=== PATIENT | male | born 1970 | race Caucasian/White ===

== ENCOUNTER 2023-07-19 09:02 | Emergency (ER) | payer OTHER, SELFPAY ==
--- NOTE | 2023-07-19 09:36 | ED.GENMED ---
History of Present Illness
General
Chief Complaint: Abdominal Pain
Time Seen by Provider: 07/19/23 09:20
Travel History
Have you had any contact with someone who has COVID-19?: No
Do you have any symptoms of coronavirus? Fever > 100 degrees, chills, cough, shortness of breath, sore throat, loss of taste or smell, muscle aches, or headache?: No
History of Present Illness
History of Present Illness:
53-year-old male presents to the emergency department for evaluation of persistent right lower quadrant and right flank pain ongoing for the past month. Pain was quite minimal initially but is gradually worsened. Describes a constant pain that is
worse whenever he is flexing the hip/walking upstairs. Tends to the past 2 to 3 days. He is scheduled for an outpatient CT scan however has not been able to get this set up yet. Denies fevers, chills, sweats, vomiting, or diarrhea but is
nauseated. Denies hematuria or dysuria. No history of intra-abdominal surgeries but did have abdominal liposuction performed approximately 1 year ago.
Past History
Past History
ED Past Medical History: None
ED Past Surgical History: None
Social History
Tobacco: Non-smoker
Alcohol: Occasional
Personal:
Living: with family
Family History
Family History: Negative Diabetes, Hypertension, Early CAD, CAD or Asthma
Review of Systems
Review of Systems
Allergies reviewed?: Yes
All Other Systems: ROS reviewed and negative except as documented in HPI and ROS
Phy Exam
Physical Exam
Physical Exam:
GEN: Well appearing, NAD, WDWN
Eyes: PERRLA, EOMs intact, no scleral icterus
HENT: NCAT, oral mucosa moist
Lungs: CTAB, no wheezes, rales, rhonchi, normal chest wall excursion
Cardiac: RRR, no M/R/G, no peripheral edema. Radial pulses 2+ bilat
Abdomen: Soft, mild tenderness along the right flank with no focal anterior abdominal tenderness, no rigidity or peritoneal sign
Neuro: AO x 3
MSK: No gross deformity or ecchymosis.
Skin: No rashes, petechiae. Normal color, no pallor or jaundice.
Psych: Calm, cooperative, proper hygiene
Course
Orders/Labs/Results
Orders:
Orders
07/19/23 09:34
CT Abd/Pel (IV only)-DH only Urgent
Comment:
Reason For Exam: RLQ pain
07/19/23 09:53
Complete Blood Count/With Diff Urgent
Comprehensive Metabolic Panel Urgent
Urinalysis Reflex To Culture Urgent
Date Specimen was Collected: 07/19/23
Time Specimen was Collected: 09:49
07/19/23 09:53
07/19/23 09:53
Vital Signs
Initial and Last Documented VS:
Initial Vital Signs
Temp Pulse Resp Pulse Ox
98.0 F 71 18 100
07/19/23 09:12 07/19/23 09:12 07/19/23 09:12 07/19/23 09:12
Last Documented Vital Signs
Temp Pulse Resp BP Pulse Ox
98.0 F 71 18 134/82 100
07/19/23 09:12 07/19/23 09:12 07/19/23 09:12 07/19/23 10:00 07/19/23 09:12
MDM/Problems Addressed
MDM/Problems Addressed:
Labs are unremarkable. CT reveals mesenteric radiculitis. Patient duration of symptoms for this condition is somewhat atypical. I discussed with general surgery who recommends high-dose NSAIDs for at least 1 week with consideration of steroids if
refractory. Patient clinically stable does not require hospitalization.
*Critical Care Note
Total Time (30-74mins, 75-104mins- exclusive of procedures): Not Applicable
ED Attending Note
-
Portions of this chart may have been created with voice recognition software.� Occasional wrong word or��sound alike� substitutions may have occurred due to the inherent limitations of voice recognition software.
Discharge Plan
Departure
Patient Disposition: Home (Routine Discharge)
Date of Disposition: 07/19/23
Time of Disposition: 11:06
Patient with high blood pressure during this ER visit?: No
Discharge Problem:
Mesenteric panniculitis
Prescriptions:
New
diclofenac sodium 75 mg tablet,delayed release (DR/EC)
75 mg PO BID 10 Days Qty: 20 0RF
No Action
lorazepam 1 MG tablet
1 mg PO HS
escitalopram oxalate 20 MG tablet
20 mg PO DAILY
hydrocodone-acetaminophen [Vicodin] 1 EACH tablet
1 ea PO .Q4-6HPRN Qty: 12 0RF
ibuprofen 600 MG tablet
600 mg PO Q6H Qty: 30 0RF
diazepam 5 MG tablet
5 mg PO TIDPRN PRN (Reason: pain) Qty: 14 0RF
Referrals:
Lizz Zee PA [Family Provider] -
Prasad Torres MD [Active] -
Activity Restrictions/Additional Instructions:
Your CT scan showed mesenteric panniculitis. This is a condition causing inflammation and scarring of the fatty tissue that connects your small intestines. Majority of people will have symptoms that resolve within several weeks however your
symptoms appear to be ongoing beyond the normal duration. We are trying you on a course of anti-inflammatory medications for the next 10 days. If this does not help your pain please discuss with your primary care physician the option for taking
steroid medications. Please follow-up with your primary care physician or the listed general surgeon in the next 10 to 14 days
Interventions
Interventions:
*Risk Screen - Suicide Last Done: 07/19/23 09:16
*General Assessment Last Done: 07/19/23 09:12
*Neglect/Abuse Screening Last Done: 07/19/23 09:16
ED- Fall Risk Assessment Last Done: 07/19/23 12:16
*ED COVID-19 Vaccine History Last Done: 07/19/23 09:12
*Nursing Disposition Last Done: 07/19/23 12:16
DD-Xtfeuk-Dtypjdlmtk Assessment Last Done: 07/19/23 12:16
Discharge Date and Time
Discharge Date/Time: 07/19/23 12:16
[2023-07-19 10:00] VITALS: BP 134/82
[2023-07-19 10:01] LABS: % Basophils 0.4 % (0-2); % Eosinophils 1.6 % (0-6); % Immature Granulocytes 0.2 % (0-0.5); % Lymphocytes 29.5 % (20.5-51.1); % Neutrophils 59.3 % (42.2-75.2); Absolute Eosinophils 0.1 10^3/uL (0-0.7); Absolute Lymphocytes 1.5 10^3/uL (1.2-3.4); Absolute Monocytes 0.5 10^3/uL (0.1-0.6); Hematocrit 40.8 % (39.0-52.0); Hemoglobin 14.7 g/dL (13.0-18.0); Mean Corpuscular Hgb 30.7 pg (27.0-31.0); Mean Corpuscular Volume 85.2 fL (80.0-94.0); Mean Platelet Volume 9.1 fL (7.4-10.4); Nucleated Red Blood Cells % 0 % (-); Platelet Count 219 10^3/uL (130-400); Red Blood Cell Count 4.79 10^6/uL (4.70-6.10); Red Cell Dist. Width 12.3 % (11.5-14.5); Urine Albumin Negative (Neg - Trace); Urine Bilirubin Negative (Negative); Urine Character Clear (Clear); Urine Color Yellow; Urine Glucose Negative (Negative); Urine Ketone Negative (Negative); Urine Leukocyte Negative (Negative); Urine Nitrite Negative (Negative); Urine Occult Blood Negative (Negative); Urine Specific Gravity 1.025 (<1.030); Urine Urobilinogen Negative (Neg - 1+); White Blood Cell Count 5.1 10^3/uL (4.8-10.8)
[2023-07-19 10:13] LABS: AST (SGOT) 26 U/L (17-59); Albumin 4.5 g/dl (3.5-5.0); Alkaline Phosphatase 56 U/L (38-126); Blood Urea Nitrogen 19 mg/dl (9-20); Calcium 9.5 mg/dl (8.4-10.2); Carbon Dioxide 27 mmol/L (22-30); Chloride 104 mmol/L (98-107); Glucose 99 mg/dl (70-99); Potassium 3.8 mmol/L (3.5-5.1); Sodium 137 mmol/L (135-145); Total Bilirubin 0.9 mg/dl (0.2-1.3); eGFR > 60.00
[2023-07-19 10:51] LABS: ALT (SGPT) 28 U/L (0-50)
== END 2023-07-19 12:16 | disposition home or self-care (01) ==
LOC: EMR 09:02
PROVIDERS: Physician Assistant; EMERGENCY PHYSICIAN Emergency Medicine; FAMILY PHYSICIAN Physician Assistant Medical
DX: K65.4 Sclerosing mesenteritis (principal)
CPT/HCPCS: 99284; 74177; 80053; 81003; 85025; Q9967

== ENCOUNTER → 2023-10-25 08:44 | Outpatient (REF) | payer OTHER, SELFPAY | LOC: RAD 08:44 | PROVIDERS: ATTENDING PHYSICIAN Physician Assistant Medical | DX: M54.50 Low back pain, unspecified (principal); M54.6 Pain in thoracic spine | CPT/HCPCS: 72072; 72110 ==

== ENCOUNTER → 2023-11-01 07:49 | Outpatient (REF) | payer OTHER, SELFPAY | LOC: RAD 07:49 | PROVIDERS: ATTENDING PHYSICIAN Physician Assistant Medical | DX: K65.4 Sclerosing mesenteritis (principal) | CPT/HCPCS: 74177; Q9967 ==

== ENCOUNTER → 2024-07-08 15:37 | Outpatient (REF) | payer OTHER, SELFPAY | LOC: RAD 15:37 | PROVIDERS: ATTENDING PHYSICIAN Physician Assistant Medical | DX: M54.2 Cervicalgia (principal) | CPT/HCPCS: 72050 ==

== ENCOUNTER 2024-11-15 11:39 | Emergency (ER) | payer OTHER, SELFPAY ==
[2024-11-15 11:43] VITALS: BP 153/93
[2024-11-15 12:21] VITALS: BP 142/73
[2024-11-15 12:28] VITALS: BMI 28.3
[2024-11-15 13:00] VITALS: BP 131/84
--- NOTE | 2024-11-15 13:28 | ED.GENMED ---
History of Present Illness
General
Chief Complaint: Male Genito-Urinary Symptoms
Source: patient
Exam Limitations: none
Time Seen by Provider: 11/15/24 13:04
Nursing documentation reviewed up to this point in time: agreed with
History of Present Illness
History of Present Illness:
Patient to ED wt complaint of left testicual pain. SYmptoms started yesterday. Taking ibuprofen for pain. States this AM pain was worse, he felt nauseous. went to but was referred to ED. He had a vasectomy on October 02. States pain is
similar to his post op pain. Denies any urinary symptoms.
Past History
Past History
ED Past Medical History: None
ED Past Surgical History: Urological (vasectomy October 02)
Social History
Tobacco: Non-smoker
Alcohol: Occasional
Personal:
Living: with family
Family History
Family History: Negative Diabetes, Hypertension, Early CAD, CAD or Asthma
Review of Systems
Review of Systems
Allergies reviewed?: Yes
All Other Systems: ROS reviewed and negative except as documented in HPI and ROS
Constitutional: Reports no symptoms
EENT: Reports no symptoms
Respiratory: Reports no symptoms
Cardiac: Reports no symptoms
ABD/GI: Reports no symptoms
: Reports other (left testicular pain)
Musculoskeletal: Reports no symptoms
Skin: Reports no symptoms
Neurological: Reports no symptoms
Psychiatric: Reports no symptoms
Phy Exam
General Physical Exam
General Presentation: well appearing and no apparent distress
General age: appears stated age
General Skin: warm and dry
General Habitus: normal
Genitourinary Exam Male
Exam Male: normal external genitalia, no evidence of trauma, no lesions and no testicular swelling
Testicular Exam: Tender to palpation: Left
Epididymis Exam: normal
Musculoskeletal Exam
Musculoskeletal Exam: full ROM
Skin Exam
Skin Exam: normal color, warm/dry and no rash
Psychiatric Exam
Psychiatric Exam: normal mood/affect
Course
Orders/Labs/Results
Orders:
Orders
11/15/24 11:42
Scrotum US [US Scrotum] Urgent
Comment:
Reason For Exam: left sided scrotum pain
11/15/24 13:29
Urinalysis Reflex To Culture Urgent
Date Specimen was Collected: 11/15/24
Time Specimen was Collected: 13:26
Comment: Clean catch
Vital Signs
Initial and Last Documented VS:
Initial Vital Signs
Temp Pulse Resp BP Pulse Ox
98.4 F 80 16 153/93 100
11/15/24 11:43 11/15/24 11:43 11/15/24 11:43 11/15/24 11:43 11/15/24 11:43
Last Documented Vital Signs
Temp Pulse Resp BP Pulse Ox
98.4 F 80 16 131/84 98
11/15/24 11:43 11/15/24 11:43 11/15/24 11:43 11/15/24 13:00 11/15/24 13:32
*Radiology
Radiology exam reviewed: radiology read reviewed
*Pulse Oximetry
SaO2: 98
Oxygen Mode of Delivery: Room air
Patient hypoxic: no
*Critical Care Note
Total Time (30-74mins, 75-104mins- exclusive of procedures): Not Applicable
Update Note
Update Note:
Patient to ED with left testicular pain. No swelling. NO fever/chills. US neg for acute findings. UA neg for UTI. No findings on exam today to explain his symptoms. WIll discharge home and he will follow up with Dr Cervantes in office. Given
instructions on s/s to return ot ED andhe is agreeable to plan.
ED Attending Note
-
Portions of this chart may have been created with voice recognition software.� Occasional wrong word or��sound alike� substitutions may have occurred due to the inherent limitations of voice recognition software.
Discharge Plan
Departure
Prescriptions:
No Action
lorazepam 1 MG tablet
1 mg PO HS
escitalopram oxalate 20 MG tablet
20 mg PO DAILY
hydrocodone-acetaminophen [Vicodin] 1 EACH tablet
1 ea PO .Q4-6HPRN Qty: 12 0RF
ibuprofen 600 MG tablet
600 mg PO Q6H Qty: 30 0RF
diazepam 5 MG tablet
5 mg PO TIDPRN PRN (Reason: pain) Qty: 14 0RF
diclofenac sodium 75 mg tablet,delayed release (DR/EC)
75 mg PO BID 10 Days Qty: 20 0RF
Referrals:
Lizz Zee PA [Family Provider, Family Practice]
Interventions
Interventions:
*Risk Screen - Suicide Last Done: 11/15/24 11:40
*General Assessment Last Done: 11/15/24 11:40
*Neglect/Abuse Screening Last Done: 11/15/24 11:40
*ED- Fall Risk Assessment Last Done: 11/15/24 12:28
*ED COVID-19 Vaccine History Last Done: 11/15/24 12:28
ED-Male Genitourinary Assessment Last Done: 11/15/24 12:28
Discharge Date and Time
Print Language: [place]
[2024-11-15 13:39] LABS: Urine Albumin Negative (Neg - Trace); Urine Bilirubin Negative (Negative); Urine Character Clear (Clear); Urine Color Yellow; Urine Glucose Negative (Negative); Urine Ketone Negative (Negative); Urine Leukocyte Negative (Negative); Urine Nitrite Negative (Negative); Urine Occult Blood Negative (Negative); Urine Urobilinogen Negative (Neg - 1+)
[2024-11-15 14:00] VITALS: BP 127/92
== END 2024-11-15 14:14 | disposition home or self-care (01) ==
LOC: EMR 11:39
PROVIDERS: Nurse Practitioner; EMERGENCY PHYSICIAN Emergency Medicine; FAMILY PHYSICIAN Physician Assistant Medical
DX: N50.812 Left testicular pain (principal); Z98.52 Vasectomy status
CPT/HCPCS: 99284; 76870; 81003; 93976

== ENCOUNTER 2025-05-08 19:51 | Emergency (ER) | payer OTHER, SELFPAY ==
[2025-05-08 19:59] VITALS: BP 178/107
[2025-05-08 20:28] VITALS: BP 137/92
[2025-05-08 20:29] VITALS: BMI 30.6
[2025-05-08 20:49] LABS: Hematocrit 43.0 % (39.0-52.0); Hemoglobin 15.2 g/dL (13.0-18.0); Mean Corp Hgb Conc. 35.3 g/dL (33.0-37.0); Mean Corpuscular Volume 84.8 fL (80.0-94.0); Nucleated Red Blood Cells % 0 % (-); Platelet Count 220 10^3/uL (130-400); Red Cell Dist. Width 12.3 % (11.5-14.5)
[2025-05-08 21:00] VITALS: BP 134/84
[2025-05-08 21:12] LABS: ALT (SGPT) 28 U/L (0-50); AST (SGOT) 28 U/L (17-59); Albumin 4.8 g/dl (3.5-5.0); Alkaline Phosphatase 56 U/L (38-126); Blood Urea Nitrogen 21 mg/dl (9-20); Calcium 10.0 mg/dl (8.4-10.2); Carbon Dioxide 27 mmol/L (22-30); Chloride 103 mmol/L (98-107); Estimated Creatinine Clearance 103 ml/min; Glucose 101 mg/dl (70-99); Potassium 4.1 mmol/L (3.5-5.1); Sodium 136 mmol/L (135-145); Total Protein 7.7 g/dl (6.3-8.2); eGFR > 60.00
[2025-05-08 21:24] LABS: Troponin I < 0.012 ng/ml
--- NOTE | 2025-05-08 21:52 | ED.GENMED ---
History of Present Illness
General
Chief Complaint: Chest Pain
Source: patient and family
Exam Limitations: none
Time Seen by Provider: 05/08/25 20:10
History of Present Illness
History of Present Illness:
Patient with history of anxiety/panic attack, who takes Valium at nighttime, as needed, approximately 3 times a week, presents to ED from urgent care center secondary to elevated blood pressure along with arrhythmia noted on EKG. Patient states
that he initially went to urgent care center secondary to left ear fullness/itching/painful sensation upon waking up this morning. As he has had ear infection in the past, wanted to have his ear evaluated. When he explained that he was feeling
also some lightheaded sensation as well as having woken up at night with his 'night terror'/panic attack, blood pressure was obtained, which was noted to be elevated. EKG obtained subsequently revealing arrhythmia. It is at this point, patient was
referred to ED for further evaluation and treatment. Patient denies chest pain. Denies shortness of breath. Denies headache. Denies dizziness in ED. Denies blurred vision. Denies loss of sensation or weakness. Denies hearing difficulties.
Patient does report having had recent nasal congestion intermittently. Denies coughing. Denies vomiting or diarrhea. Denies smoking. Denies leg pain or swelling. Denies back pain. There is no family history of heart disease. There is no
family history of blood clots. Patient does state that he has had increased stress recently both at home and at work especially.
Past History
Past History
ED Past Medical History: None
ED Past Surgical History: Urological (vasectomy October 02)
Social History
Tobacco: Non-smoker
Alcohol: Occasional
Personal:
Living: with family
Family History
Family History: Negative Diabetes, Hypertension, Early CAD, CAD or Asthma
Review of Systems
Review of Systems
Allergies reviewed?: Yes
All Other Systems: ROS reviewed and negative except as documented in HPI and ROS
Constitutional: Reports no symptoms; Denies fever or chills
EENT: Reports other (Ear fullness)
Respiratory: Reports no symptoms; Denies cough or trouble breathing
Cardiac: Denies chest pain, palpitations or syncope
ABD/GI: Reports no symptoms; Denies vomiting or diarrhea
Musculoskeletal: Reports no symptoms; Denies edema or back pain
Skin: Reports no symptoms
Neurological: Reports no symptoms; Denies dizzy, headache or weakness
Phy Exam
Physical Exam
Physical Exam:
Physical Exam
General: no apparent distress, not acutely ill. afebrile
Head: nc/at. eomi
Neck: supple. no meningeal signs. TM: normal
Heart: s1/s2 regular rate and rhythm.
Lungs: no acute respiratory distress. clear bilaterally
Abdomen: normal bowel sounds. not tender.
Neuro: alert and oriented x 3. no focal neurological deficits
Skin: no rash
Psychiatric: well kept. interactive and cooperative
Extremities: no edema. no calf tenderness.
Scores
Heart Score for Chest Pain Patients
STEMI patient?: No
History: Slightly or Non-Suspicious
ECG: Normal
Age: >45 - <65 years
Risk Factors: No Risk Factors
Troponin: </= Normal Limit
Heart Score for Chest Pain Patients: 1
Heart Score Risk: 2.5% MACE over next 6 weeks
Course
Orders/Labs/Results
Orders:
Orders
05/08/25 19:52
ECG [Electrocardiogram (*1)] Urgent
Reason for Study: Chest Pain
Electrocardiogram (*1) Urgent
Reason for Study: Chest Pain
Cardiac Monitoring- Treatment ONCE
EKG- Treatment ONCE
EKG- Treatment ONCE
IV Insert/Care/Rem.- Treatment PRN
O2 Therapy [RESP] Urgent
Titrate/Wean O2 to maintain O2 sat greater than (%): 90
Special Instructions: Maintain sats >/=90%
Pulse Ox/spot Check [RESP] Urgent
Quantity: 1
Special Instructions: ON ROOM AIR
05/08/25 20:42
Complete Blood Count/With Diff Urgent
Comprehensive Metabolic Panel Urgent
Troponin I Urgent
Abnormal Lab Results
05/08/25
20:42
BUN 21 H mg/dl
(9-20)
Glucose 101 H mg/dl
(70-99)
05/08/25 20:42
05/08/25 20:42
Vital Signs
Initial and Last Documented VS:
Initial Vital Signs
Temp Pulse Resp BP Pulse Ox
98.7 F 64 20 178/107 99
05/08/25 19:59 05/08/25 19:59 05/08/25 19:59 05/08/25 19:59 05/08/25 19:59
Last Documented Vital Signs
Temp Pulse Resp BP Pulse Ox
98.7 F 64 20 178/107 99
05/08/25 19:59 05/08/25 19:59 05/08/25 19:59 05/08/25 19:59 05/08/25 21:52
MDM/Problems Addressed
MDM/Problems Addressed:
EKG from urgent care center reviewed, significant for 1 isolated PAC without any other acute abnormalities.
Patient with an unremarkable workup in ED, including blood work and EKG. Patient without any risk factors for heart disease at this time, nor any risk factors for PE. No further workup indicated at this time. Patient otherwise remains afebrile,
hemodynamically stable, and appears comfortable, at time of discharge. Patient given outpatient resources for counseling/therapy, for his underlying anxiety disorder. Return precautions provided.
*Pulse Oximetry
SaO2: 99
Oxygen Mode of Delivery: Room air
Patient hypoxic: no
*EKG
Interpreted by ED Provider?: Yes
EKG Intrepretation Date: 05/08/25
Heart Rate: 59
Rate: bradycardiac
Rhythm: sinus
[place]: normal axis
Interval: normal interval
QRS Pattern: normal QRS
*Critical Care Note
Total Time (30-74mins, 75-104mins- exclusive of procedures): Not Applicable
ED Attending Note
-
Portions of this chart may have been created with voice recognition software.� Occasional wrong word or��sound alike� substitutions may have occurred due to the inherent limitations of voice recognition software.
Discharge Plan
Departure
Patient Disposition: Home (Routine Discharge)
Date of Disposition: 05/08/25
Time of Disposition: 21:52
Patient with high blood pressure during this ER visit?: Yes
Condition: Good
Discharge Problem:
Hypertension, Atrial contractions, premature
Instructions: Overview of heart arrhythmias, High blood pressure - ED (DC)
Prescriptions:
No Action
lorazepam 1 MG tablet
1 mg PO HS
escitalopram oxalate 20 MG tablet
20 mg PO DAILY
hydrocodone-acetaminophen [Vicodin] 1 EACH tablet
1 ea PO .Q4-6HPRN Qty: 12 0RF
ibuprofen 600 MG tablet
600 mg PO Q6H Qty: 30 0RF
diazepam 5 MG tablet
5 mg PO TIDPRN PRN (Reason: pain) Qty: 14 0RF
diclofenac sodium 75 mg tablet,delayed release (DR/EC)
75 mg PO BID 10 Days Qty: 20 0RF
hydrocodone-acetaminophen 5-325 mg tablet
1 tab PO Q4H PRN (Reason: Pain) Qty: 10 0RF
Referrals:
Lizz Zee PA [Family Provider, Family Practice]
Activity Restrictions/Additional Instructions:
As discussed, please follow up with your primary care physician with any further concerns.
Interventions
Interventions:
*Risk Screen - Suicide Last Done: 05/08/25 20:29
*General Assessment Last Done: 05/08/25 19:59
*Neglect/Abuse Screening Last Done: 05/08/25 20:29
*ED COVID-19 Vaccine History Last Done: 05/08/25 20:29
*ED Influenza Vaccine History Last Done: 05/08/25 20:29
[facility] Fall Risk Assessment Tool Last Done: 05/08/25 20:31
ED- Cardiac Assessment Last Done: 05/08/25 20:31
Discharge Date and Time
Print Language: [id number]
[2025-05-08 22:00] VITALS: BP 131/97
== END 2025-05-08 22:11 | disposition home or self-care (01) ==
LOC: EMR 19:51
PROVIDERS: Student in an Organized Health Care Education/Training Program; EMERGENCY PHYSICIAN Emergency Medicine; FAMILY PHYSICIAN Physician Assistant Medical
DX: I49.1 Atrial premature depolarization (principal); I10 Essential (primary) hypertension; F41.9 Anxiety disorder, unspecified
CPT/HCPCS: 99284; 80053; 84484; 85025; 93005